=== PATIENT | female | born 2000 | race Caucasian/White ===

== ENCOUNTER 2024-09-23 04:23 | Inpatient (IN) | payer MEDICAID, SELFPAY ==
[2024-09-23] VITALS (16 sets, daily range): BP systolic 120–140; BP diastolic 60–82; PULSE 79–107; RESP 16–98; TEMP 36.4–37; O2SAT 97–99; BMI 22.4
--- NOTE | 2024-09-23 05:09 | PD.LDHP ---
Documentation for date of: 09/23/24 OB Labor/Induct. HPI History of Present Illness : 3 Para: 2 Term pregnancies: 2 pregnancies: 0 Living children: 2 History of Abortions: Spontaneous and Elective: 0 History of Vaginal deliveries: 2 History of sections: No History of : No SHY: 10/03/24 Gestational Age (weeks): 38 Gestational Age (days): 4 History of present illness: Patient presents with regular/painful ctx. No LOF, no vaginal bleeding. Feels normal movement. History of Present Adequate Care: No Labs Maternal Blood Type: O Pos Labs: Positive: Rubella Titre and Negative: RPR, Hepatitis B, HIV, Chlamydia, Gonorrhea and Group Beta Strep Narrative: UDS positive for cannabinoids on 04/21/24. HCV non-reactive. NIPT negative. 2hr glucose normal. Review of Systems Review of Systems Narrative Review of Systems: Review of Systems Systems Reviewed: All systems reviewed, normal except as documented Constitutional Constitutional: Denies body ache(s), Denies chills, Denies fever(s) and Denies headache(s) ENT Ears, Nose, Mouth, and Throat: Denies headache(s) and Denies vertigo Cardiovascular Cardiovascular: Denies chest pain, Denies palpitations, Denies dyspnea and Denies syncope Respiratory Respiratory: Denies cough, Denies dyspnea Gastrointestinal Gastrointestinal: Denies nausea and Denies vomiting Neurologic Neurologic: Denies convulsions, Denies headache(s), Denies other visual disturbances, Denies syncope and Denies vertigo Past Medical History Surgical History SURGICAL: Negative Section OTHER SURGICAL HX: denies Social History SOCIAL: Vapes nicotine. Used THC until 7mo(?) of . Denies any illicit drug use. No ETOH. Past Medical History Comments PMH COMMENT: Denies any significant PMhx. Denies any hx of STIs. Meds Home Medications and Allergies Home Medications ?Medication ?Instructions ?Recorded ?Confirmed ?Type vitamins-iron fumarate 27 1 tab PO QDAY 09/23/18 09/23/24 History mg iron-folic acid 0.8 mg tablet ( Vitamin) Allergies Allergy/AdvReac Type Severity Reaction Status Date / Time No Known Allergies Allergy Verified 09/23/24 04:45 OB Exam Physical Exam Vital signs: Pulse BP 107 H 136/82 H 09/23/24 05:07 09/23/24 05:07 Narrative: General: well developed, well nourished, having painful regular ctx Cardiac: normal heart rate Lungs: breathing without distress Abdomen: soft, gravid, non-tender, no rebound or guarding Extremities: no pain with palpation of calves Detailed Labor and Delivery Exam Dilation (cm): 5 Effacement (%): 80 Cervix position: posterior station: -1 Consistency: soft Presentation: Vertex Membranes: intact monitor accelerations: 15x15 monitor decelerations: None skilled nursing variability: Moderate (11-25) Contraction frequency (min): 2-4min OB Assessment & Plan Assessment and Plan (1) Active labor at term: Status: Acute Assessment and plan: Patient is a 24yo with SIUP at 38+4 presenting in active labor. Regular/painful contractions, SCE: 5-6/80/-1, intact. Vitals wnl, benign exam. Reassuring assessment. EFW by [facility]: 5lb. PMhx/ complicated by: (no records available to review from clinic at time of admission, only labs- hx is per patient) -Underweight at start of -Tobacco use (vaping). -THC use up until approx 7mo of . +cannabinoids in April. Plan: -Admit to L&D -Establish IV, routine labs including UDS -CEFM -Clear liquid diet -Superintendent Horticulture/consent re: -GBS status: negative -Anticipate -Safe to proceed (2) Marijuana use during : Status: Acute (3) Underweight due to inadequate caloric intake: Status: Acute (4) Use of nicotine during : Status: Acute
[2024-09-23 05:48] LABS: Basophils % (Auto) 0 % (0-2.5); Eosinophils % (Auto) 0 % (0-10); Hematocrit 40.1 % (36.0-46.0); Hemoglobin 14.3 g/dL (12.0-16.0); Immature Granulocytes % (Auto) 1 % (0-0); Lymphocytes # (Auto) 1.9 Thou/mm3 (1.0-4.8); Lymphocytes % (Auto) 12 % (10-50); Mean Corpuscular HGB Conc 35.7 g/dl (31.0-37.0); Mean Corpuscular Hemoglobin 32.6 pg (25.0-35.0); Mean Corpuscular Volume 92 fL (80-100); Monocytes # (Auto) 0.9 Thou/mm3 (0.0-0.8); Monocytes % (Auto) 5 % (0-12); Neutrophils # (Auto) 13.1 Thou/mm3 (1.8-7.7); Neutrophils % (Auto) 82 % (37-80); Nucleated Red Blood Cell % 0 /100 WBC (0); Platelet Count 173 Thou/mm3 (140-440); RDW Standard Deviation 39.6 fL (36.4-46.3); Red Blood Count 4.38 Miln/mm3 (4.00-5.20)
[2024-09-23 05:49] LABS: Amphetamine/Metham Scrn,Ur OB Negative (Negative); Benzoylecgonine Screen, Ur OB Negative (Negative); Opiate Screen,Urine OB Negative (Negative); THC Screen,Urine OB Negative (Negative)
[2024-09-23] MEDS: RINGERS LACTATED 1000 ML 1,000 ML 100 ML IV (05:59)
[2024-09-23] MEDS: OXYTOCIN in NS 20 units 20 UNIT/1,000 ML BAG 125 UNIT IV (06:00)
[2024-09-23] MEDS: BENZO/LANO/ALOE (Dermoplast) 60 GM CAN 1 SPRAY TOP (06:02)
[2024-09-23] MEDS: IBUPROFEN TAB 400 MG TABLET 800 MG PO ×2 (06:03→18:29)
[2024-09-23 06:34] LABS: Syphilis Nonreactive (Nonreactive)
--- NOTE | 2024-09-23 06:51 | OBDSUM_ITS ---
Data (White) Data Hx Section: No : 3 Para: 2 Term: 2 : 0 : 0 Delivery Data (White) Labor Data ROM Date: 09/23/24 ROM Time: 05:20 Rupture Type: AROM Amniotic Fluid: Clear Delivery Data Labor Onset Stage 1 Date: 09/23/24 Labor Onset Stage 1 Time: 01:30 Labor Onset Stage 2 Date: 09/23/24 Labor Onset Stage 2 Time: 05:34 Delivery Date: 09/23/24 Delivery Time: 05:36 Placenta Delivery Date: 09/23/24 Placenta Delivery Time: 05:41 Delivered by: Summer Alvarado Delivery nurse: Tea Faith Other staff at delivery: 2nd Nurse Other staff at delivery: Kiya Albarran Delivery Method Delivery: Vaginal Delivery Type: Spontaneous Presentation: Vertex Anesthesia Type Primary Anesthesia: None Placenta Placenta Delivery: Spontaneous Cord Sample: Cord Blood Obtained EBL Estimated blood loss (ml): 150 Umbilical Cord Umbilical Vessels: 3 Additional Procedures Patient is a 24yo [id number] s/p uncomplicated at 38+4wk after presenting in active labor, delivering at 0536 on 09/23/2024. On presentation, SCE was 5-6cm. She progressed without augmentation to C/C/0 at which point she began pushing. She did not desire epidural. With good maternal pushing efforts, 's head delivered OA and restituted LATRICE. Left anterior shoulder delivered easily followed by posterior shoulder and corpus. Infant had spontaneous cry and was vigorous. Apgars 9/9. Infant placed on maternal abdomen where nose/mouth were suctioned and dried/stimulated. After approximately 1 minute, cord was clamped x2 and cut by patient. Cord blood collected for typing. With fundal massage and cord traction, placenta delivered spontaneously and intact with 3 vessel centrally inserted cord. Bimanual massage performed and IV pitocin given per protocol with fundus then firm at u-2cm and hemostasis noted. Inspection of perineum and vagina revealed no lacerations. All counts correct x2. Mom and were doing well when I left the room. Summer Alvarado MD Complications Complications: none Data (White) [place] Data Infant Gender: Female Infant Weight Grams: 2510 1 Minute Total: 9 5 Minute Total: 9
[2024-09-23] MEDS: DOCUSATE SOD 100 MG CAPSULE PO (21:53)
[2024-09-24 01:43] VITALS: BP 115/68; PULSE 70; RESP 18; TEMP 36.7; O2SAT 97
[2024-09-24 04:45] VITALS: BP 117/70; PULSE 72; RESP 17; TEMP 36.7; O2SAT 98
[2024-09-24 06:04] LABS: Basophils # (Auto) 0.1 Thou/mm3 (0.0-0.2); Basophils % (Auto) 0 % (0-2.5); Eosinophils # (Auto) 0.1 Thou/mm3 (0.0-0.5); Eosinophils % (Auto) 0 % (0-10); Hematocrit 38.2 % (36.0-46.0); Hemoglobin 13.3 g/dL (12.0-16.0); Immature Granulocytes % (Auto) 1 % (0-0); Immature Granulocytes Auto 0.07 Thou/mm3 (0.00-0.00); Lymphocytes # (Auto) 2.7 Thou/mm3 (1.0-4.8); Lymphocytes % (Auto) 19 % (10-50); Mean Corpuscular HGB Conc 34.8 g/dl (31.0-37.0); Mean Corpuscular Volume 95 fL (80-100); Monocytes # (Auto) 0.8 Thou/mm3 (0.0-0.8); Monocytes % (Auto) 6 % (0-12); Neutrophils # (Auto) 10.2 Thou/mm3 (1.8-7.7); Neutrophils % (Auto) 74 % (37-80); Nucleated Red Blood Cell % 0 /100 WBC (0); Platelet Count 161 Thou/mm3 (140-440); RDW Standard Deviation 42.2 fL (36.4-46.3); Red Blood Count 4.03 Miln/mm3 (4.00-5.20); White Blood Count 13.8 Thou/mm3 (3.6-11.0)
[2024-09-24 08:00] VITALS: BP 126/84; PULSE 80; RESP 17; TEMP 36.4; O2SAT 98
[2024-09-24] MEDS: PRENATAL VITAMIN/FE FUM/FA TABLET 1 TAB PO (08:01)
[2024-09-24] MEDS: DOCUSATE SOD 100 MG CAPSULE PO (08:02)
--- NOTE | 2024-09-24 09:40 | XR_ITS ---
Examination: CT brain head without contrast. 2-D sagittal coronal reconstructions Date and time of exam:September 24, 2024 1031 hrs. Indications: yesterday, syncopal episode, patient fell today with injury to the head CTDI: vol (mGy):42.8 DLP: (mGycm):751 Technique: Multiple CT axial sections of the brain have been obtained, 5 mm slice thickness. Contrast has not been administered. 2-D sagittal, coronal reconstructions have been obtained Low dose protocols were performed. One or more of the following dose reduction techniques were used; automated exposure control, adjustment of the mA and/or KV according to patient size, use of iterative reconstruction technique. Findings: No significant ventricular enlargement. Intra-axial or extra-axial hemorrhage density is not seen. No mass effect or midline shift Basal cisterns are not remarkable. Fourth ventricle is midline. Cranial vault intact. Impression: Negative for acute hemorrhage, mass effect or midline shift
--- NOTE | 2024-09-24 09:48 | PD.RESCONSUL ---
HPI Data of Consult Requesting Physician: Suzi Castro MD Admitting Provider: Summer Alvarado MD Attending Provider: Suzi Castro MD Primary Care Provider: Physician No Primary/Family Consult Narrative Reason for consult: seizure like acitivity History of present illness: Were consulted due to seizure-like activity of a 24-year-old patient G3, P3 with history of seizure-like activity in the past and otherwise no relevant past medical history, post day 1 via natural . Patient had a rapid response called today due to being found on the floor after having some seizure-like activity without any postictal confusion. On assessment patient was alert oriented x 3 with no residual neurological deficits nor postictal confusion. Patient stated that earlier she was holding her when she started twitching and decided to place the back on the crib she stated that she felt that it was similar to the other seizure-like activity she had. She then stated that the last thing she remembers was standing at the edge of the bed and then waking up on the floor. She denied having any confusion afterwards any bowel or urinary incontinence. Patient mentioned that she had a similar episode around 1 year ago and she was told that this was due to dehydration. She also had another episode around 2 or 3 years ago and was told the same thing that was most likely due to dehydration. She did not follow-up with any neurologist has not any medication at this time. PMH: Seizure-like activity FMH: Mom has mitral valve prolapse, father due to suicide Social Hx: Admits to smoking and marijuana use, denies any alcohol Medications: None per patient Allergies: None per patient cc:: cc: Suzi Castro MD Review of Systems Review of Systems Narrative Review of Systems: Constitutional: Denies sweats, Denies weight loss/gain, Denies fever, Denies chills. HEENT: Denies hearing loss, Denies ear pain, Denies postnasal drip, Denies double vision, Denies blurry vision. Respiratory: Denies shortness of breath, Denies cough, Denies wheezing. Cardiovascular: Denies chest pain, Denies palpitations, Admits sudden loss of consciousness. GI: Denies blood in stool, Denies constipation, Denies abdominal pain, Denies difficulty swallowing, Denies nausea or vomit. : Denies urinary incontinence, Denies pain while urinating, Denies increased urinary frequency. MSK: Denies joint pain, Denies joint swelling, Denies numbness. Skin: Denies rash, Denies itching, Denies easy bruising. Neuro: Denies headaches, Denies dizziness, Admits seizures. Past Medical History Past Medical History Comments PMH COMMENT: PMH: Seizure-like activity FMH: Mom has mitral valve prolapse, father due to suicide Social Hx: Admits to smoking and marijuana use, denies any alcohol Medications: None per patient Allergies: None per patient Exam Vital Signs Temp Pulse Resp BP Pulse Ox O2 Del Method 98.1 F 72 17 117/70 98 Room Air 09/24/24 04:45 09/24/24 04:45 09/24/24 04:45 09/24/24 04:45 09/24/24 04:45 09/24/24 04:45 Results Labs 09/24/24 09:38 09/24/24 09:38 Labs: Short CBC 09/24/24 Range/Units 04:47 WBC 13.8 H (3.6-11.0) Thou/mm3 Hgb 13.3 (12.0-16.0) g/dL Hct 38.2 (36.0-46.0) % Plt Count 161 (140-440) Thou/mm3 Quality Measures Quality Measures VTE prophylaxis Medications Home Medications and Allergies Home Medications ?Medication ?Instructions ?Recorded ?Confirmed ?Type vitamins-iron fumarate 27 1 tab PO QDAY 09/23/18 09/23/24 History mg iron-folic acid 0.8 mg tablet ( Vitamin) Allergies Allergy/AdvReac Type Severity Reaction Status Date / Time No Known Allergies Allergy Verified 09/23/24 04:45 Visit Medications Acetaminophen (Acetaminophen 325 Mg Tablet) 325 mg PO Q4H PRN PRN Reason: SEE COMMENTS Stop: 10/23/24 05:52 Acetaminophen (Acetaminophen 325 Mg Tablet) 650 mg PO Q4H PRN PRN Reason: SEE COMMENTS Stop: 10/23/24 05:52 Benzocaine (Benzo/Lano/Aloe (Dermoplast) 60 Gm Can) 1 spray TOP PRN PRN PRN Reason: PERINEAL DISCOMFORT Stop: 10/23/24 04:40 Last Admin: 09/23/24 06:02 Dose: 1 can Docusate Sodium (Docusate Sod 100 Mg Capsule) 100 mg PO BID [facility] Stop: 10/23/24 08:59 Last Admin: 09/24/24 08:02 Dose: 100 mg Hydrocortisone (Hydrocortisone Cr 1% 30 Gm Tube) 0 gm TOP QID PRN PRN Reason: HEMORRHOIDS Stop: 10/23/24 05:52 Tranexamic Acid (Tranexamic Acid Ivpb) 1,000 mg in 100 mls @ 200 mls/hr IV PRNMRX1 PRN PRN Reason: BLEEDING Oxytocin/Sodium Chloride (Pitocin 20 Units In Ns) 20 unit in 1,000 mls @ 125 mls/hr IV .Q8H [facility] Stop: 10/23/24 04:44 Last Admin: 09/23/24 06:00 Dose: 125 mls/hr Ibuprofen (Ibuprofen Tab 400 Mg Tablet) 800 mg PO Q8H PRN PRN Reason: SEE COMMENTS Stop: 10/23/24 05:52 Last Admin: 09/23/24 18:29 Dose: 800 mg Methylergonovine Maleate (Methylergonovine Inj 0.2 Mg/Ml Vial) 0.2 mg IM X1 PRN PRN Reason: Excessive Bleeding Misoprostol (Misoprostol 200 Mcg Tablet) 800 mcg VT X1 PRN PRN Reason: BLEEDING Oxytocin (Oxytocin Inj 10 Unit/Ml Vial) 10 unit IM X1 PRN PRN Reason: After placenta delivers Multivit/Folic Acid/Iron ( Vitamin/Fe Fum/Fa Tablet) 1 tab PO QDAY [facility] Stop: 10/23/24 08:59 Last Admin: 09/24/24 08:01 Dose: 1 tab Discontinued Medications Diphtheria/Tetanus/Acell Pertussis (Diphth,Pertuss(Acell),Tet Vac 0.5 Ml Syr) 0.5 ml IMi .ONCE ONE Stop: 09/23/24 05:54 Fentanyl Citrate (Fentanyl Cit Inj 50 Mcg/Ml Amp 2ml) 100 mcg IV Q1HR PRN PRN Reason: PAIN SCALE 4-6 (Moderate Stop: 09/28/24 04:40 Lactated Ringer's (Lactated Ringers) 500 mls @ 999 mls/hr IV .Q31M PRN PRN Reason: HR tracing (Per Policy) Stop: 10/23/24 04:40 Lactated Ringer's (Lactated Ringers) 1,000 mls @ 100 mls/hr IV .Q10H [facility] Stop: 10/23/24 04:44 Last Admin: 09/23/24 05:59 Dose: 100 mls/hr Ibuprofen (Ibuprofen Tab 400 Mg Tablet) 800 mg PO X1 PRN PRN Reason: uterine cramping Last Admin: 09/23/24 06:03 Dose: 800 mg Ibuprofen (Ibuprofen Tab 600 Mg Tablet) 600 mg PO Q6H PRN PRN Reason: pain Stop: 10/23/24 06:08 Lidocaine HCl (Lidocaine Hcl 1% 20 Ml Vial) 20 ml INFL X1 ONE Stop: 09/23/24 04:42 Measles/Mumps/Rubella Vaccine Live (Measles, Mumps & Rubella Vacc 0.5 Ml Vial) 0.5 ml SCi .ONCE ONE Stop: 09/23/24 05:54 Mineral Oil (Mineral Oil 30 Ml Udc) 30 ml TOP PRN PRN PRN Reason: To perineum for delivery. Stop: 10/23/24 04:40 Assessment & Plan Plan 24-year-old patient G3, P3 with history of seizure-like activity in the past and otherwise no relevant past medical history, post day 1 via natural . We were consulted due to seizure like activity. #Seizure-like activity versus syncope ? Patient reports having some twitching and seizure-like activity and did have some loss of conscious with the last thing she remembered was being sitting down at the edge of the bed before waking up on the floor ? Patient did not have any residual neurological deficits nor that she have any urine or bowel incontinence. ? DDx seizures versus syncope ?Head CT unremarkable Plan: - Orthostatic vitals ordered ? EEG ordered ? MRI head/brain without contrast ordered ?Neurology consulted appreciate recommendations ? Will continue to monitor #Hypophosphatemia ? Phosphorus 2.1 Plan: ?K-Phos ordered ? Will replace necessary #Leukocytosis ? Leukocytes 11.9 today ? Most likely reactive Plan: ? Recommend to continue to monitor Thank you for allowing us to be part of the patient's care. Internal medicine team Disposition: Consulted for seizure like activity, pending EEG and MRI Diet: Regular DVT prophylaxis: SCDs Code: Full code Case disclosed with Attending Dr. Rosario Main PGY1 Attending Provider Attestation/Addendum Kaci Cox, DO, attest that I was physically present for the jin portions of the service and evaluated the patient with the resident and I reviewed and discussed the case with the resident and agree with the resident's findings and plans of care as documented above Patient is a 24-year-old G3, P3 female patient who is day 1 who had a rapid response this morning due to seizure-like activity. Patient had just placed her baby back in the crib when she stated that she had some jerking movements and subsequently syncopized onto the floor and found to have convulsions. Patient does not recall how long the episode lasted, but felt as though it lasted about 10 minutes. Patient endorses having previous history of seizure-like activity, but was never treated. She had been previously told that possibly she had been dehydrated as a result of her seizures in the past. Patient is noted to have history of marijuana use in the past. She had an uncomplicated and denies any personal or family history related to seizures. Internal medicine was consulted due to new onset of seizure-like activity. A CT head was done following rapid response and had no acute intracranial findings. Patient had a short period of confusion following the seizure episode. We will order an MRI and EEG. Case was discussed with neurology, will provide further recommendations once EEG is completed. If MRI cannot be done today due to the weekend, patient can follow-up with neurology and have MRI done outpatient. Will continue seizure precautions at this time. Electrolytes are within normal limits. Patient has no focal neurological deficits on exam either.
[2024-09-24 10:06] LABS: Collection Type, Urine Clean Catch
[2024-09-24 10:07] LABS: Basophils % (Auto) 0 % (0-2.5); Eosinophils # (Auto) 0.1 Thou/mm3 (0.0-0.5); Eosinophils % (Auto) 0 % (0-10); Hematocrit 37.9 % (36.0-46.0); Hemoglobin 13.3 g/dL (12.0-16.0); Immature Granulocytes % (Auto) 0 % (0-0); Immature Granulocytes Auto 0.04 Thou/mm3 (0.00-0.00); Lymphocytes # (Auto) 2.1 Thou/mm3 (1.0-4.8); Lymphocytes % (Auto) 18 % (10-50); Mean Corpuscular HGB Conc 35.1 g/dl (31.0-37.0); Mean Corpuscular Hemoglobin 32.4 pg (25.0-35.0); Mean Corpuscular Volume 92 fL (80-100); Monocytes # (Auto) 0.7 Thou/mm3 (0.0-0.8); Monocytes % (Auto) 6 % (0-12); Neutrophils % (Auto) 75 % (37-80); Nucleated Red Blood Cell % 0 /100 WBC (0); Platelet Count 167 Thou/mm3 (140-440); RDW Standard Deviation 41.3 fL (36.4-46.3); White Blood Count 11.9 Thou/mm3 (3.6-11.0)
[2024-09-24 10:23] LABS: Alanine Aminotransferase 15 U/L (10-49); Albumin, Serum 3.7 gm/dL (3.5-5.0); Albumin/Globulin Ratio 1.7 (1.2-2.2); Alkaline Phosphatase 136 U/L (46-116); Anion Gap 8 (7-16); Aspartate Amino Transferase 22 U/L (0-34); BUN/Creatinine Ratio 10 Ratio (12-20); Bilirubin,Total 0.4 mg/dL (0.3-1.2); Blood Urea Nitrogen 6 mg/dL (9-23); Calcium 8.9 mg/dL (8.3-10.6); Calcium (Corrected) 9.1 mg/dL (8.5-10.1); Carbon Dioxide 23.5 mMol/L (20.0-31.0); Chloride 107 mMol/L (98-107); Creatinine (Component) 0.6 mg/dL (0.6-1.3); Estimated Creatinine Clearance 115.3 mL/min (>60); Globulin 2.2 gm/dL (2.3-3.5); Glucose 110 mg/dL (74-106); Magnesium 1.6 mg/dL (1.6-2.6); Osmolality,Calculated 274 (275-295); Phosphorous 2.1 mg/dL (2.4-5.1); Potassium 3.7 mMol/L (3.4-5.1); Sodium 138 mMol/L (136-145); Total Protein 5.9 gm/dL (5.7-8.2); eGFR > 60 See Note
[2024-09-24 10:24] LABS: Fibrinogen 386 mg/dL (175-375); INR 0.9 (0.9-1.3); Partial Thromboplastin Time 24.9 Seconds (22.0-36.0); Prothrombin Time 10.2 Seconds (9.0-12.2)
[2024-09-24 10:33] LABS: Bacteria,Urine Rare; Bilirubin,Urine Negative (Negative); Blood,Urine 3+ (Negative); Clarity,Urine Clear (Clear/Hazy); Color,Urine Lt-Yellow (Lt Yel-Yel); Glucose, Urine Negative (Negative); Ketones,Urine 1+ (Negative); Leukocyte Esterase,Urine Positive (Negative); Nitrite,Urine Negative (Negative); PH,Urine 5.5 (5.0-7.0); Protein,Urine Negative (Neg - Trace); RBC,Urine 66 /hpf (0-3); Specific Gravity,Urine 1.012 (1.001-1.035); Squamous Epithelial Cell,Urine 1 /hpf (0-5); Urobilinogen,Urine Negative mg/dL (0.0-1.0); WBC,Urine 11 /hpf (0-5)
--- NOTE | 2024-09-24 11:03 | PD.LDPPPRG ---
Subjective Subjective Interval history: Patient was seen at the bedside had an uneventful vaginal delivery after presenting in spontaneous labor yesterday. Patient has a history of seizures and she states she was on some medications before however she was not on any medications during this . Today morning she was found on the floor passed out. No witness to a seizure. Throughout the stay patient blood pressure has been within normal limits. No suspicion of drug abuse history of THC during this . Currently patient denies feeling any headache, blurry vision, nausea vomiting, epigastric pain, shortness of breath Exam Vital Signs Temp Pulse Resp BP Pulse Ox O2 Del Method 98.1 F 72 17 117/70 98 Room Air 09/24/24 04:45 09/24/24 04:45 09/24/24 04:45 09/24/24 04:45 09/24/24 04:45 09/24/24 04:45 Constitutional Constitutional: no acute distress Routine HEENT Exam Head: Present normocephalic and atraumatic Eye: Present EOMI and PERRL ENT: Present mucous membranes moist Routine Neck Exam Neck: Present supple and trachea midline Routine Respiratory Exam Respiratory: Present chest non-tender, lungs clear, normal breath sounds and no resp distress Routine Cardiovascular Exam Cardiovascular: Present RRR Routine Abdominal Exam Abdominal: Present soft and normoactive bowel sounds Routine Extremities Exam Extremities: Present full ROM Routine Skin Exam Skin: Present intact, dry and warm Routine Neurological Exam Neurological: Present alert, oriented X3 and CN II-XII intact Routine Psychiatric Exam Psychiatric: Present normal affect and normal thought process Objective Labs 09/24/24 09:38 09/24/24 09:38 Labs: Laboratory Results - last 24 hr 09/24/24 09/24/24 09/24/24 04:47 09:30 09:38 WBC 13.8 H 11.9 H RBC 4.03 4.10 Hgb 13.3 13.3 Hct 38.2 37.9 MCV 95 92 MCH 33.0 32.4 MCHC 34.8 35.1 RDW Std Deviation 42.2 41.3 Plt Count 161 167 Neut % (Auto) 74 75 Lymph % (Auto) 19 18 [place] % (Auto) 6 6 Eos % (Auto) 0 0 Baso % (Auto) 0 0 Neut # (Auto) 10.2 H 9.0 H Lymph # (Auto) 2.7 2.1 [place] # (Auto) 0.8 0.7 Eos # (Auto) 0.1 0.1 Baso # (Auto) 0.1 0.0 Immature Gran # (Auto) 0.07 H 0.04 H Absolute Nucleated RBC 0.00 0.00 Immature Gran % 1 H 0 Nucleated RBC % 0 0 PT 10.2 INR 0.9 APTT 24.9 Fibrinogen 386 H Sodium 138 Potassium 3.7 Chloride 107 Carbon Dioxide 23.5 Anion Gap 8 BUN 6 L Creatinine 0.6 Estim Creat Clear Calc 115.3 eGFR > 60 BUN/Creatinine Ratio 10 L Glucose 110 H Calculated Osmolality 274 L Uric Acid 5.0 Calcium 8.9 Corrected Calcium 9.1 Phosphorus 2.1 L Magnesium 1.6 Total Bilirubin 0.4 AST 22 ALT 15 Alkaline Phosphatase 136 H Total Protein 5.9 Albumin 3.7 Globulin 2.2 L Albumin/Globulin Ratio 1.7 Ur Collection Type Clean Catch Urine Color Lt-Yellow Urine Clarity Clear Urine pH 5.5 Ur Specific [place] 1.012 Urine Protein Negative Urine Glucose (UA) Negative Urine Ketones 1+ A Urine Blood 3+ A Urine Nitrite Negative Urine Bilirubin Negative Urine Urobilinogen (Auto) Negative Ur Leukocyte Esterase Positive Urine RBC 66 H Urine WBC 11 H Ur Squamous Epith Cells 1 Urine Bacteria Rare Assessment & Plan Problem List (1) Active labor at term: Status: Acute (2) Marijuana use during : Status: Acute (3) Underweight due to inadequate caloric intake: Status: Acute (4) Use of nicotine during : Status: Acute Assessment Comment Assessment comment: 24-year-old status post vaginal delivery yesterday day 1 Meeting milestones appropriate Had an episode of syncope, unwitnessed History of seizures not on medications Hospitalist has been consulted EKG awaited Glucose 110 no hypoglycemia Hemoglobin appropriate not anemic Plan Comment Plan Comment: Wait for hospitalist consultation and possible establishment of care for her seizure Time Spent With Patient Time: Total time spent is greater than 50% in coordination of care (as documented) at patient's floor/unit and/or counseling patient:
[2024-09-24 11:22] LABS: Amphetamine/Metham Scrn,Ur OB Negative (Negative); Benzoylecgonine Screen, Ur OB Negative (Negative); Opiate Screen,Urine OB Negative (Negative); THC Screen,Urine OB Negative (Negative)
--- NOTE | 2024-09-24 11:37 | EKG_ITS ---
[facility] Test Date: 2024-09-24 Pat Name: SAMUEL WHALEY [facility] Gender[facility] Receiving Specialist: KIRK : 2000 Requested By: Suzi Castro Order Number: [id number] Reading MD: Suzi Castro Measurements Intervals [place] Rate: 80 P: 58 KS: 130 QRS: 78 QRSD: 90 T: 40 QT: 327 QTc: 377 Interpretive Statements SINUS RHYTHM WITH SINUS ARRHYTHMIA POSSIBLE RIGHT VENTRICULAR CONDUCTION DELAY [RSR (QR) IN V1/V2] Compared to ECG 10/15/2023 14:55:10 No significant changes /store/S0/[id number]/[id number].pdf
[2024-09-24 12:00] VITALS: BP 102/64; PULSE 87; RESP 18; TEMP 36.9; O2SAT 95
[2024-09-24] MEDS: Magnesium Sulfate 2 GM Ivpb 2 GM/50 ML BAG IV (12:33)
[2024-09-24] MEDS: POT PHOS 15 mMol in NS 250 ML 15 MMOL/250 ML BAG 62.5 MMOL IV (14:11)
[2024-09-24 14:47] VITALS: BP 108/64; BP 114/74; BP 118/70; PULSE 103; PULSE 88; PULSE 91
[2024-09-24 16:54] VITALS: BP 108/65; PULSE 102; RESP 16; TEMP 36.8; O2SAT 96
--- NOTE | 2024-09-24 16:56 | PC.NURSE ---
@900 call light was answered by student and patient stated that she fall on floor and hit her head. RN went to the room and assess patient. redness noted on left side back of the head, clinic charge nurse notified and RR initiated, the team showed up and initiate code star. dr Castro made aware over phone, new labs, EKG and consult with hospitalist ordered. VS WNL. order noted and carried out, continue to monitor.
--- NOTE | 2024-09-24 18:52 | PC.NURSE ---
1800: patient stated she wants to leave now and doesn't want to stay for medication to finish and any test, supercharge repair supervisor and dr Castro made aware
--- NOTE | 2024-09-24 19:04 | PC.NURSE ---
[facility] referral faxed
--- NOTE | 2024-09-25 11:21 | EVENTNT_ITS ---
Documentation for date of: 09/25/24 Event Note Event Note: Patient was discharged yesterday by DO[facility] OF NURSING PRACTICE. EEG was abnormal and neurologist contacted as with recommendations for the patient. We called the patient and notified her about the findings of the EEG and about the neurologist rec ommendations. The neurologist recommendations were as followed: Start Keppra 500 mg twice daily. No driving. Handling the only when someone is around. Side effects of Keppra with are sleepiness and the baby, patient was notified about this and told that if baby became more somnolent to notify the neurologist or her amphibious operations officer. Patient will need to follow-up with neurologist Dr Edmonds. Patient was also notified that we will send the prescription to her pharmacy. Case disclosed with Attending Dr. Rosario Main PGY1
== END 2024-09-24 18:36 | disposition home or self-care (01) | DRG 560 ==
LOC: S4SX 06:36 → S4NX 08:06
PROVIDERS: Internal Medicine; Admitting Provider Obstetrics & Gynecology; Visit Provider Student in an Organized Health Care Education/Training Program
DX: O99.324 Drug use complicating childbirth (principal); Z3A.38 38 weeks gestation of pregnancy; Z37.0 Single live birth; F12.90 Cannabis use, unspecified, uncomplicated; O99.334 Smoking (tobacco) complicating childbirth; F17.290 Nicotine dependence, other tobacco product, uncomplicated; O75.89 Other specified complications of labor and delivery; R63.6 Underweight; R63.8 Other symptoms and signs concerning food and fluid intake; D72.829 Elevated white blood cell count, unspecified; R56.9 Unspecified convulsions; O99.285 Endocrine, nutritional and metabolic diseases complicating the puerperium; E83.39 Other disorders of phosphorus metabolism
CPT/HCPCS: 36415; 59025; 59409; 70450; 80053; 80307; 81001; 83735; 84100; 84550; 85025; 85384; 85610; 85730; 86780; 86850; 86900; 86901; 93005; 95816; J2590; J3475; J7120; J7999; A9270